=== PATIENT | male | born 1985 | race Caucasian/White ===

== ENCOUNTER 2019-12-07 10:53 | Emergency (ER) | payer SELFPAY ==
[2019-12-07 11:07] VITALS: BP 164/96; PULSE 71; RESP 20; TEMP 36.4; O2SAT 100
--- NOTE | 2019-12-07 11:21 | ED.GENADULT ---
HPI - General Adult General Chief complaint: Unspecified Stated complaint: Refill on Prescripton Time Seen by Provider: 12/07/19 11:21 Source: patient and RN notes reviewed History of Present Illness HPI narrative: Patient is a 34-year-old male that presents to the urgent care requesting prescription refills. Patient states that he takes Seroquel and Zoloft daily and is been out of his medication for 2 days. Patient states that he moved here from [place] and is already exacerbated his 90-day refills from his previous PCP. Patient states that he does not currently have a PCP but does have a follow-up with somebody that is supposed to help him with his refills next week. Patient states he has a history of chronic depression and anxiety and is currently been on these medications for 8 months. No other acute complaints. No acute distress noted. Patient read the plan of care. Related Data Home Medications Medication Instructions Recorded Confirmed quetiapine [Seroquel] 200 mg PO HS 12/07/19 12/07/19 sertraline [Zoloft] 150 mg PO DAILY 12/07/19 12/07/19 Allergies Allergy/AdvReac Type Severity Reaction Status Date / Time No Known Allergies Allergy Verified 12/07/19 11:07 Review of Systems Review of Systems: Narrative: CONSTITUTIONAL: Denies fever, chills, or sweats. EYES: Denies visual changes, redness, or discharge. ENT: Denies rhinorrhea, congestion, sore throat, or otalgia. CARDIOVASCULAR: Denies chest pain, palpitations, or edema. RESPIRATORY: Denies cough or dyspnea. GASTROINTESTINAL: Denies abdominal pain, nausea, vomiting, or diarrhea. GENITOURINARY: Denies dysuria or hematuria. SKIN: Denies rash or itching. MUSCULOSKELETAL: Denies back pain, joint pain, or myalgia. NEUROLOGIC: Denies headache, numbness, or weakness. Psychiatric: Reports of chronic depression and anxiety All other systems reviewed are negative, except as documented in HPI. PMFSH Social History Social History Gender identity (if verbalized by the patient): Male Comments At the time of my signature, I reviewed and agree with the nursing past medical, surgical, social, and family history. There is no relevant family history pertinent to the patient complaint. Exam Narrative: Exam Narrative: GENERAL: This is a well-nourished, well-developed patient, in no apparent distress. HEAD: normocephalic, atraumatic. EYES: PERRL. Sclera clear/white. Vision is grossly intact. EARS: External ears normal NOSE: External nose normal with no obvious nasal discharge THROAT: Mucous membranes moist NECK: Neck supple CARDIOVASCULAR: Regular rate and rhythm without murmurs, gallops, or rubs. RESPIRATORY: Clear to auscultation. Breath sounds equal bilaterally. No wheezes, rales, or rhonchi. SKIN: warm, intact with no suspicious lesions or rash, good texture and turgor. NEURO: awake, alert, and oriented to person, place and time. There were no obvious focal neurologic abnormalities. EXTREMITIES: No clubbing, cyanosis, or edema. Course Vital Signs Vital signs: Vital Signs Temperature 97.6 F 12/07/19 11:07 Pulse Rate 71 12/07/19 11:07 Respiratory Rate 20 12/07/19 11:07 Blood Pressure 164/96 H 12/07/19 11:07 Pulse Oximetry 100 12/07/19 11:07 Temperature 97.6 F 12/07/19 11:07 Pulse Rate 71 12/07/19 11:07 Respiratory Rate 20 12/07/19 11:07 Blood Pressure 164/96 H 12/07/19 11:07 Pulse Oximetry 100 12/07/19 11:07 Reviewed?patient is informed that they may have pre-hypertension or hypertension based on a blood pressure reading in the department. I recommend the patient call the primary care provider listed on their discharge instructions or a physician of their choice this week to arrange follow-up for further evaluation of possible pre-hypertension or hypertension. Medical Decision Making MDM Narrative Medical decision making narrative: Advised the patient to take the medication as directed. It is not normal practice for an u
== END 2019-12-07 11:51 | disposition home or self-care (01) ==
PROVIDERS: Emergency Provider Nurse Practitioner Family
DX: F32.9 Major depressive disorder, single episode, unspecified (principal); F41.9 Anxiety disorder, unspecified
CPT/HCPCS: 99201; G0463

== ENCOUNTER 2020-03-04 10:09 | Emergency (ER) | payer SELFPAY ==
[2020-03-04 10:15] VITALS: BP 148/86; PULSE 78; RESP 16; TEMP 36.2; O2SAT 100
--- NOTE | 2020-03-04 10:47 | ED.RECABL ---
HPI - Recheck/Abnormal Lab/Rx General Chief Complaint: Recheck/Abnormal Lab/Rx Stated Complaint: med refill Time Seen by Provider: 03/04/20 10:28 Source: patient Mode of arrival: ambulatory Limitations: no limitations History of Present Illness HPI narrative: Patient presents the emergency department for medication refill. Reports he is visiting up here currently and will be home for another couple of weeks. Reports he has run out of his hypertension and depression medications. Currently has no complaints. Denies fever, chest pain, shortness of breath, or suicidal or homicidal thoughts. Related Data Home Medications Medication Instructions Recorded Confirmed quetiapine [Seroquel] 200 mg PO HS 12/07/19 12/07/19 sertraline [Zoloft] 150 mg PO DAILY 12/07/19 12/07/19 Allergies Allergy/AdvReac Type Severity Reaction Status Date / Time No Known Allergies Allergy Verified 12/07/19 11:07 Review of Systems Review of Systems: Narrative: CONSTITUTIONAL: Denies fever CARDIOVASCULAR: Denies chest pain RESPIRATORY: Denies dyspnea. PSYCHIATRIC: Reports depression. All systems reviewed & are unremarkable except as noted in HPI and below PMFSH Past Medical History Medical History (Updated 03/04/20 @ 10:51 by Nancy Baeza PA-C) History of depression History of hypertension Social History Social History Gender identity (if verbalized by the patient): Male Exam Narrative: Exam Narrative: GENERAL: Well-appearing, well-nourished, and in no acute distress. HEAD: Normocephalic, atraumatic. EYES: EOMI. CHEST: Clear to auscultation. No respiratory distress. No wheezes rales or rhonchi HEART: Regular rate and rhythm. No murmur heard. Normal peripheral pulses. EXTREMITIES: Normal range of motion. No edema. SKIN: Warm, dry, no rash. NEURO: No focal deficits. Alert and oriented x3. PSYCH: Normal mood and affect Course Vital Signs Vital signs: Vital Signs Temperature 97.1 F L 03/04/20 10:15 Pulse Rate 78 03/04/20 10:15 Respiratory Rate 16 03/04/20 10:15 Blood Pressure 148/86 H 03/04/20 10:15 Pulse Oximetry 100 03/04/20 10:15 Temperature 97.1 F L 03/04/20 10:15 Pulse Rate 78 03/04/20 10:15 Respiratory Rate 16 03/04/20 10:15 Blood Pressure 148/86 H 03/04/20 10:15 Pulse Oximetry 100 03/04/20 10:15 MDM - Recheck/Abnormal Lab/Rx MDM Narrative Medical decision making narrative: Patient presents emergency department for medication refill. Needs his Seroquel, Zoloft and lisinopril refilled. He has no complaints today. Vitals are normal other than mild elevation of blood pressure to 148/86. I discussed with patient that I could refill his hypertension medication, but I do not refill psychiatric medications. He will need to follow-up with a primary and/or his psychiatrist for this. Patient will be given on-call primary doctor. Patient is stable and felt appropriate further outpatient evaluation. He was given warnings to return to the ER Critical Care Time Critical Care Time Critical Care Time: No Discharge Plan Discharge Clinical Impression: Encounter for medication refill Patient Disposition: Home, Self-Care Condition: Stable Instructions: Depression (ED), Hypertension (ED) Additional Instructions: Return to the Emergency Department if you experience fever, chest pain, shortness of breath, swelling in your legs, thoughts of hurting yourself or anyone else, or any other symptoms that are concerning to you Follow up with primary care doctor Prescriptions: New lisinopril 40 mg tablet 40 mg PO DAILY Qty: 14 RF: 0 No Action sertraline [Zoloft] 100 mg Tablet 150 mg PO DAILY RF: 0 quetiapine [Seroquel] 200 mg Tablet 200 mg PO HS RF: 0 quetiapine [Seroquel] 200 mg tablet 200 mg PO HS Qty: 20 RF: 0 sertraline [Zoloft] 100 mg tablet 150 mg PO DAILY 20 Days Qty: 30 RF: 0 Follow-up/Referrals: Daly Koehler MD [Physician] - 2 Days
[2020-03-04 10:57] VITALS: BP 142/59; PULSE 70; RESP 16; O2SAT 99
== END 2020-03-04 10:58 | disposition home or self-care (01) ==
LOC: ANHED 10:50
PROVIDERS: Emergency Provider Family Medicine
DX: I10 Essential (primary) hypertension (principal); F32.9 Major depressive disorder, single episode, unspecified
CPT/HCPCS: 99281